=== PATIENT | female | born 1980 | race Caucasian/White ===

== ENCOUNTER → 2017-09-08 | Outpatient (CLI) | payer BC ==
[~2017-09-08] MED LIST: OPTIRAY 320 IV PRN
--- NOTE | 2017-09-08 17:20 | DIAGNOSTIC IMAGING REPORT ---
CT ANGIOGRAPHY OF THE CHEST, PULMONARY EMBOLUS PROTOCOL CLINICAL HISTORY: Chest pain and shortness of breath. COMPARISON STUDY: No previous studies for comparison. TECHNIQUE: Following IV administration of 93 mL of Optiray-320, helical axial images of the chest were obtained utilizing the pulmonary embolus protocol. Maximal intensity projections and sagittal and coronal reformats were viewed on an independent 3D workstation. IV contrast was administered without complication. A dose lowering technique was utilized adhering to the principles of ALARA. CT DOSE: 428.89 mGycm FINDINGS: No pulmonary emboli are identified. There is no evidence for thoracic aortic dissection. The size of the heart is normal. There is no pericardial effusion. No enlarged thoracic lymph nodes are present. Central airways are patent. No pneumothorax or pleural effusion is noted. There is no consolidation to suggest pneumonia. Mild groundglass opacities reflect atelectasis. Bony thorax and upper abdomen are unremarkable. IMPRESSION: 1. No pulmonary emboli identified. 2. No acute intrathoracic findings. Electronically signed by: aMrv Gamino M.D. 09/08/2017 5:19 PM Dictated Date/Time: 09/08/2017 5:14 PM
[2017-09-08 17:40] LABS: ALBUMIN 4.1 gm/dl (3.4-5.0); ALT/SGPT 81 U/L (12-78); AST/SGOT 37 U/L (15-37); BLOOD UREA NITROGEN 15 mg/dl (7-18); CALCIUM 9.4 mg/dl (8.5-10.1); CARBON DIOXIDE 30 mmol/L (21-32); CREATININE 0.84 mg/dl (0.60-1.20); GLUCOSE 91 mg/dl (70-99); SODIUM 138 mmol/L (136-145)
[2017-09-08 17:53] LABS: ALKALINE PHOSPHATASE 70 U/L (45-117); TOTAL PROTEIN 8.1 gm/dl (6.4-8.2)
[2017-09-08 17:54] LABS: BASO % 0.8 %; BASO ABS # 0.06 K/uL (0-0.2); EOS % 1.5 %; EOS ABS # 0.11 K/uL (0-0.5); HEMATOCRIT 37.9 % (37-47); HEMOGLOBIN 12.7 g/dL (12.0-16.0); IG# 0.02 K/uL (0.00-0.02); LYMPH % 34.1 %; LYMPH ABS # 2.56 K/uL (1.2-3.4); MEAN CELL VOLUME 88.3 fL (80-100); MEAN CORPUSCULAR HEMOGLOBIN 29.6 pg (25-34); MEAN CORPUSCULAR HGB CONC 33.5 g/dl (32-36); MEAN PLATELET VOLUME 10.2 fL (7.4-10.4); MONO % 5.3 %; NEUT ABS # 4.36 K/uL (1.4-6.5); PLATELET COUNT 334 K/uL (130-400); RED CELL DISTRIBUTION WIDTH CV 12.2 % (11.5-14.5); RED CELL DISTRIBUTION WIDTH SD 38.8 fL (36.4-46.3); WHITE BLOOD COUNT 7.51 K/uL (4.8-10.8)
== END | disposition home or self-care (01) ==
LOC: C.CTS 16:43
PROVIDERS: ATTEND Family Medicine
DX: R06.02 Shortness of breath (principal); R42 Dizziness and giddiness; D64.9 Anemia, unspecified; M25.50 Pain in unspecified joint; R00.1 Bradycardia, unspecified

== ENCOUNTER 2019-01-08 17:58 | Inpatient (IN) ==
--- NOTE | 2019-01-08 18:39 | History & Physical Report ---
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 fhts categ 1. can ambulate with intermittent monitoring. History of Present Illness Chief Complaint: thinks her ctx are closer and stronger. Primary Care Provider: NO PCP 38yo at 39+wks ega with cc as noted. Patient called with ctx q4min apart for 2hrs. no rom. +fm. No vb. pnc c/b 1. prior preg c/b gest htn 2. ama --having wkly nsts 3. anxiety on meds. 4. GBS pos urine--trt in labor pnl rh neg, ri, gbs pos urine obh: x 1, induction , sab x1 gynh: no stds, nl paps pmh: see below psh: see below Allergies Allergy/AdvReac Type Severity Reaction Status Date / Time No Known Allergies Allergy Verified 01/04/19 10:31 Home Medications Home Medications Medication Instructions Recorded Confirmed Type aspirin [Aspir-81] 81 mg PO DAILY 01/08/19 01/08/19 History buspirone 5 mg PO DAILY 01/08/19 01/08/19 History buspirone 10 mg PO HS 01/08/19 01/08/19 History ferrous sulfate [Iron (ferrous 325 mg PO BID 01/08/19 01/08/19 History sulfate)] folic acid 800 mcg PO DAILY 01/08/19 01/08/19 History Patient History Family History Father Family history of diabetes mellitus Mother Hemangiopericytoma Grandmother (Maternal) Pancreatic cancer Aunt Breast cancer Social History Preferred Language: Spanish Communication Ability: Effective Dairy Clerk Required: No Beliefs That Will Affect Care: None marital status: Current Living Situation: Spouse Current Living Situation Comment: Lives with and daughter Other Information That Helps Us Care for You: No Feels Safe at Home: Yes Smoking Status: Never smoker Do You Dip or Chew Tobacco: No ; Second Hand Exposure: No ; Tobacco Cessation Education Requested by Patient: No Hx Alcohol Use: No Hx Substance Use: No Review of Systems see hpi Physical Exam Constitutional: WD/WN, vitals as above Respiratory: normal respiratory effort, lungs clear to auscultation Cardiovascular: Rate/Rhythm: regular rate and regular rhythm Gastrointestinal (Abdomen): Percussion/Palpation: abdomen soft; abdomen nontender efw 8# Musculoskeletal: nt calves Neurologic: grossly normal Psychiatric: A+Ox3, euthymic affect Genitourinary: Manual OB Exam: + cervical dilation (2-3), + cervical effacement 90% and + station -2 OB Exam Monitor Tracing: + external FHT monitor used (reactive, mod variability), + external uterine monitor used (q5), + category I and + normal FHT variability Results & Data Vital Signs (Past 12 Hours) Vital Signs Temp Pulse Resp BP 01/08/19 18:22 70 139/73 01/08/19 18:02 99.1 F 81 20 132/97
[2019-01-08] MEDS ORDERED: OXYTOCIN 30 UNITS/500 ML BAG IV PRN ×2 (20:29→21:58)
[2019-01-08] MEDS ORDERED: PENICILLIN G POTASSIUM 6 MU in DEXTROSE 5% 250 ML IV STA (20:29)
--- NOTE | 2019-01-08 20:34 | Labor Progress Brief Note ---
Date of Service January 08, 2019 Subjective Reason For Note: Routine Evaluation feeling more intense Assessment & Plan (1) Supervision of elderly multigravida: admit, iv, labs. wants epidural for pain mgmt (2) Carrier of group B Streptococcus: start pcn (3) History of gestational hypertension: will check labs, occas bp elevated Physical Exam Constitutional: WD/WN, vitals as above Genitourinary: Manual OB Exam: + cervical dilation (4-5cm), + cervical effacement 100% and + station -2 OB Exam Monitor Tracing: + external FHT monitor used (135 mod variability ), + external uterine monitor used (q2-5), + category I and + normal FHT variability Results & Data Vital Signs (Past 12 Hours) Vital Signs Temp Pulse Resp BP 01/08/19 19:16 97.9 F 82 20 146/67 H 01/08/19 18:22 70 139/73 01/08/19 18:07 70 139/73 01/08/19 18:02 99.1 F 81 20 132/97
[2019-01-08] MEDS: LACTATED RINGER'S 1,000 ML IV PRN ×2 (20:42→23:36)
[2019-01-08] MEDS ORDERED: NALOXONE HCL 0.4 MG/1 ML VIAL/CARP IV PRN (20:49)
[2019-01-08] MEDS ORDERED: NALBUPHINE HCL INJ 10 MG/ML AMP IV PRN (20:49)
[2019-01-08] MEDS ORDERED: ONDANSETRON INJ 2 MG/ML 2 ML VIAL IV PRN (20:49)
[2019-01-08] MEDS ORDERED: NALOXONE HCL 1 MG in SODIUM CHLORIDE 0.9% 1000ML 1,000 ML IV PRN (20:49)
[2019-01-08] MEDS ORDERED: fentaNYL 2MCG/ML ROPIV 1.25MG/ML 100 ML BAG EPI PRN (20:49)
[2019-01-08] MEDS ORDERED: DiphenhydrAMINE HCL 50 MG/ML VIAL IV PRN (20:49)
[2019-01-08] MEDS ORDERED: ePHEDrine sulfate 50 MG/ML AMP IV PRN (20:49)
--- NOTE | 2019-01-08 20:52 | Anesthesiology Consultation ---
Date of Service January 08, 2019 Assessment & Plan (1) Encounter for pre-operative examination: Chart Review Chart Review: Patient NOT seen in Pre Admission Testing and Acceptable Risk for Labor Epidural Consults Requested none ASA ASA2 Proposed Anesthesia Anesthesia Type: Labor Epidural Risk / Benefits Reviewed With: PT / POA / Parent / Guardian, Accepts Plan and Informed Consent Obtained History Height/Weight Height: 5 ft 6 in Weight: 96.162 kg Allergies Allergy/AdvReac Type Severity Reaction Status Date / Time No Known Allergies Allergy Verified 01/04/19 10:31 Medications Home Medications Medication Instructions Recorded Confirmed Last Taken aspirin [Aspir-81] 81 mg PO DAILY 01/08/19 01/08/19 01/07/19 12:00 buspirone 5 mg PO DAILY 01/08/19 01/08/19 01/07/19 09:00 buspirone 10 mg PO HS 01/08/19 01/08/19 01/07/19 22:00 ferrous sulfate [Iron (ferrous 325 mg PO BID 01/08/19 01/08/19 01/07/19 21:00 sulfate)] folic acid 800 mcg PO DAILY 01/08/19 01/08/19 01/07/19 09:00 Active Medications Generic Name Dose Route Start Last Admin Trade Name Freq PRN Reason Stop Dose Admin Lactated Ringer's 1,000 mls @ 125 mls/hr 01/08/19 20:29 01/08/19 20:42 Lr IV 01/10/19 20:28 999 mls/hr .Q8H PRN Administration L&D Protocol Protocol NPO Date Last Intake of Fluids: 01/08/19 Time Last Intake of Fluids: 20:00 Date Last Intake of Solids: 01/08/19 Time Last Intake of Solids: 09:00 Past Medical History Medical History Asthma seasonal GERD (gastroesophageal reflux disease) Anemia hemolytic anemia diagnosed at age 7 Anxiety GERD (gastroesophageal reflux disease) History of anesthesia reaction had difficulty waking after rhinoplasty sx Hx of gastric ulcer 5 bleeding ulcers 2010 Exercise / Class Metabolic Activity II 4-5 Yardwork/Stairs/Walk up hill Past Family History Family History Father Family history of diabetes mellitus Mother Hemangiopericytoma Grandmother (Maternal) Pancreatic cancer Aunt Breast cancer Past Surgical History Surgical History History of esophagogastroduodenoscopy (EGD) History of rhinoplasty History of tooth extraction wisdom teeth Past Anesthesia History No Hx of Anesthesia Complications and No Family Hx of Anesthesia Complications History of PONV No Hx of PONV and No Hx of Motion Sickness Social History Smoking Status: Never smoker Do You Dip or Chew Tobacco: No Hx Alcohol Use: No Alcohol type: beer and wine alcohol intake frequency: 0-2 drinks per day Hx Substance Use: No substance use type: does not use Physical Exam Vital Signs Last Vital Signs Temp 36.6 C 01/08/19 19:16 Pulse 100 H 01/08/19 21:28 Resp 20 01/08/19 19:16 BP 146/67 H 01/08/19 19:16 Pulse Ox 97 01/08/19 21:28 Constitutional + obese ENMT Mouth: no TMJ abnormality, no TMJ clicking and no dentition abnormality Thyromental Distance: > or= 3.5 Finger Breadths Mallampati Class: II Neck + thick neck Respiratory normal respiratory effort; no respiratory distress Auscultation: lungs clear to auscultation bilaterally Cardiovascular Rate/Rhythm: regular rate and regular rhythm Musculoskeletal Spine: normal cervical ROM and no pain with cervical ROM Neurologic moves all extremities Motor/Sensory: no sensory deficit Psychiatric Orientation: alert and oriented x 3 Testing Laboratory Results 01/08/19 20:55
[2019-01-08] MEDS ORDERED: BUPIVACAINE 0.25% 30 ML VIAL ONE (21:02)
[2019-01-08] MEDS ORDERED: fentaNYL citrate 100 MCG/2 ML VIAL ONE (21:03)
[2019-01-08] MEDS ORDERED: ePHEDrine sulfate 50 MG/ML AMP ONE (21:03)
[2019-01-08] MEDS ORDERED: fentaNYL 2MCG/ML ROPIV 1.25MG/ML 100 ML BAG EPI ONE (21:04)
[2019-01-08 21:20] LABS: Hematocrit (blood only) 33.4 % (37-47); Hemoglobin 11.9 g/dL (12.0-16.0); Mean Corpuscular Volume 88.8 fL (80-100); Mean Platelet Volume 11.7 fL (7.4-10.4); Platelet Count 221 K/uL (130-400); RDW Coefficient of Variation 13.5 % (11.5-14.5); RDW Standard Deviation 43.7 fL (36.4-46.3); Red Blood Count 3.76 M/uL (4.2-5.4); White Blood Count 19.43 K/uL (4.8-10.8)
[2019-01-08 21:21] LABS: Mean Corpuscular Hgb Conc 35.6 g/dL (32-36)
[2019-01-08 21:37] LABS: Albumin Level 3.1 gm/dl (3.4-5.0); BUN Creatinine Ratio 12.3 (10-20); Calcium 9.7 mg/dl (8.5-10.1); Creatinine Clr Calc Pharmacy 150.1 ml/min; Est GFR (Non-African American) 116.4; Potassium 3.8 mmol/L (3.5-5.1)
[2019-01-08 21:40] LABS: Albumin Globulin Ratio 0.8 (0.9-2); Bilirubin,Total 0.5 mg/dl (0.2-1); Globulin 3.9 gm/dl (2.5-4.0)
[2019-01-09] MEDS: PENICILLIN G POTASSIUM 3 MU in DEXTROSE 5% 100 ML IV PRN ×2 (00:49→04:38)
--- NOTE | 2019-01-09 04:22 | Labor Progress Brief Note ---
Date of Service January 09, 2019 Subjective comfortable Assessment & Plan (1) Supervision of elderly multigravida: (2) Carrier of group B Streptococcus: c/w pcn and pit. good cx change. will see how arom helps pattern. fhts categ 1. Physical Exam Constitutional: WD/WN, vitals as above Genitourinary: Manual OB Exam: + cervical dilation 7 cm, + cervical effacement (80), + station 0 and + amniotic fluid (AROM) clear OB Exam Monitor Tracing: + external FHT monitor used (130 mod variability), + external uterine monitor used (q2, pit at 13), + category I and + normal FHT variability Results & Data Vital Signs (Past 12 Hours) Vital Signs Temp Pulse Resp BP Pulse Ox 01/09/19 04:13 74 95 01/09/19 04:12 71 124/66 01/09/19 04:08 75 95 01/09/19 04:03 75 97 01/09/19 03:58 76 97 01/09/19 03:56 76 124/60 01/09/19 03:53 73 97 01/09/19 03:48 84 98 01/09/19 03:44 83 92 01/09/19 03:43 68 95 01/09/19 03:42 70 130/62 01/09/19 03:38 70 96 01/09/19 03:33 72 97 01/09/19 03:29 78 132/68 01/09/19 03:28 80 97 01/09/19 03:23 99.0 F 85 16 97 01/09/19 03:19 79 93 01/09/19 03:18 76 96 01/09/19 03:13 78 97 01/09/19 03:12 72 153/75 H 01/09/19 03:08 81 96 01/09/19 03:03 77 95 01/09/19 02:58 79 95 01/09/19 02:57 78 134/72 01/09/19 02:53 86 96 01/09/19 02:48 73 96 01/09/19 02:43 80 98 01/09/19 02:42 76 136/75 01/09/19 02:38 78 97 01/09/19 02:33 78 97 01/09/19 02:28 76 96 01/09/19 02:27 76 147/74 H 01/09/19 02:23 83 98 01/09/19 02:18 99.1 F 80 18 98 01/09/19 02:13 83 99 01/09/19 02:11 74 119/62 01/09/19 02:08 70 97 01/09/19 02:06 83 94 01/09/19 02:03 72 96 01/09/19 01:58 80 99 01/09/19 01:56 71 132/70 01/09/19 01:53 85 96 01/09/19 01:48 79 96 01/09/19 01:43 78 97 01/09/19 01:41 82 131/69 01/09/19 01:38 76 97 01/09/19 01:33 79 97 01/09/19 01:28 79 141/74 H 97 01/09/19 01:23 105 H 96 01/09/19 01:22 78 94 01/09/19 01:18 106 H 96 01/09/19 01:15 103 H 94 01/09/19 01:13 96 H 95 01/09/19 01:11 85 118/65 01/09/19 01:08 83 95 01/09/19 01:03 84 96 01/09/19 00:59 16 01/09/19 00:58 89 97 01/09/19 00:56 96 H 129/66 01/09/19 00:53 82 97 01/09/19 00:52 99.0 F 01/09/19 00:48 92 H 97 01/09/19 00:43 84 96 01/09/19 00:41 81 130/69 01/09/19 00:38 80 96 01/09/19 00:33 83 96 01/09/19 00:29 16 01/09/19 00:28 100 H 124/81 97 01/09/19 00:23 110 H 97 01/09/19 00:18 86 95 01/09/19 00:15 86 93 01/09/19 00:13 93 H 95 01/09/19 00:12 84 140/75 01/09/19 00:08 92 H 95 01/09/19 00:07 93 H 93 01/09/19 00:03 86 96 01/08/19 23:58 90 95 01/08/19 23:57 85 94 01/08/19 23:56 83 134/72 01/08/19 23:53 88 97 01/08/19 23:48 92 H 96 01/08/19 23:43 83 133/78 96 01/08/19 23:38 94 H 97 01/08/19 23:33 93 H 95 01/08/19 23:28 89 96 01/08/19 23:27 85 94 01/08/19 23:26 88 16 129/77 01/08/19 23:23 97 H 97 01/08/19 23:18 85 96 01/08/19 23:15 99.7 F H 16 01/08/19 23:13 86 96 01/08/19 23:11 87 133/75 01/08/19 23:08 89 96 01/08/19 23:03 85 96 01/08/19 22:58 84 139/77 97 01/08/19 22:53 85 97 01/08/19 22:48 83 98 01/08/19 22:43 89 132/77 97 01/08/19 22:38 86 97 01/08/19 22:33 90 97 01/08/19 22:28 88 96 01/08/19 22:27 83 134/77 01/08/19 22:23 93 H 96 01/08/19 22:18 88 96 01/08/19 22:13 93 H 96 01/08/19 22:12 85 142/75 H 01/08/19 22:08 93 H 97 01/08/19 22:03 92 H 97 01/08/19 21:58 88 97 01/08/19 21:56 95 H 139/77 01/08/19 21:55 94 H 137/74 01/08/19 21:53 94 H 97 01/08/19 21:52 94 H 146/76 H 01/08/19 21:50 89 141/80 H 01/08/19 21:49 88 139/75 01/08/19 21:48 85 97 01/08/19 21:46 94 H 143/78 H 01/08/19 21:44 99 H 137/75 01/08/19 21:43 104 H 97 01/08/19 21:42 100 H 141/76 H 01/08/19 21:40 96 H 143/77 H 01/08/19 21:38 94 H 139/76 96 01/08/19 21:36 93 H 134/76 01/08/19 21:35 94 H 137/79 01/08/19 21:33 90 138/79 97 01/08/19 21:31 90 94 01/08/19 21:28 100 H 97 01/08/19 21:24 115 H 92 01/08/19 21:23 108 H 98 01/08/19 19:16 97.9 F 82 20 146/67 H 01/08/19 18:22 70 139/73 01/08/19 18:07 70 139/73 01/08/19 18:02 99.1 F 81 20 132/97
[2019-01-09] MEDS: LACTATED RINGER'S 1,000 ML IV PRN (07:15)
[2019-01-09] MEDS ORDERED: HYDROCORTISONE ACETATE 25 MG SUPP PR PRN (08:04)
[2019-01-09] MEDS ORDERED: DIPHTHERIA/TETANUS/PERTUSSIS 0.5 ML SYR/VIAL IM ONE (08:04)
[2019-01-09] MEDS ORDERED: SUPERCREAM 0.870% 15 GM JAR EXT PRN (08:04)
[2019-01-09] MEDS ORDERED: ACETAMINOPHEN 325 MG TAB PO PRN (08:04)
[2019-01-09] MEDS ORDERED: OXYCODONE/ACETAMINOPHEN 5mg/325mg TAB PO PRN (08:04)
[2019-01-09] MEDS ORDERED: OXYTOCIN 30 UNITS/500 ML BAG IV PRN (08:04)
[2019-01-09] MEDS ORDERED: BENZOCAINE 20% AER SPR 82.5 GM CAN EXT PRN (08:04)
--- NOTE | 2019-01-09 08:06 | Delivery Summary ---
Vaginal Delivery Summary Date of Service January 09, 2019 The patient dilated to complete and pushed to deliver a viable female Apgars 8 and 8 via over 2nd degree perineal laceration. Mouth and nose bulb suctioned at perineum. Shoulders and body delivered with ease. Infant was vigorous and crying at . Cord clamped and to maternal abdomen where the cord was then doubly clamped and cut. Cord blood specimen collection took place for pts private collection. Placenta delivered spontaneously and intact, three-vessel cord. Hemostasis achieved with dilute pitocin and uterine massage and drainage of the bladder for approximately 200 cc under sterile conditions. Laceration repaired in usual fashion using 3-0 vicryl. Cervix and sulci intact. EBL 300 cc. Mother and baby stable recovery.
[2019-01-09] MEDS ORDERED: OXYTOCIN 20 UNITS in LACTATED RINGER'S 1,000 ML IV SCH (08:15)
[2019-01-09] MEDS: IBUPROFEN 600 MG TAB PO PRN ×4 (10:04→23:16)
[2019-01-09] MEDS ORDERED: DOCUSATE SODIUM 100 MG CAP ONE (11:05)
[2019-01-09] MEDS: DOCUSATE SODIUM 100 MG CAP PO SCH (20:20)
--- NOTE | 2019-01-10 06:27 | Obstetrical Progress Note ---
Date of Service <Stefanie Moore MD - Last Filed: 01/10/19 07:59> January 10, 2019 Assessment & Plan <Stefanie Moore MD - Last Filed: 01/10/19 07:59> (1) Status post vaginal delivery: JUAN is a 38 yo with a PMHx of gestational HTN on PPD 1 for IOL for post dates (41 weeks) with well controlled BP during this delivery and recovery period. - GBS+ s/p treatment, Rh -, Rubella immune -Vitals reviewed and WNL (Tmax 37.6__) -patient is doing clinically well patient ready for discharge - will place in 'nesting status' until peds clears baby for d/c (given GBS treatment) - After discharge will have [address] Evans. Subjective <Stefanie Moore MD - Last Filed: 01/10/19 07:59> Ambulation: ambulating normally Voiding: no voiding problems Passing Gas:: Yes Diet Tolerance:: regular diet Lochia:: Moderate (feels gush of blood when going from sitting to standing) Current Pain Level(1-10): 2 examined at bedside Physical Exam <Stefanie Moore MD - Last Filed: 01/10/19 07:59> General Appearance: Alert, oriented. No acute distress. Cardiac: Regular rate and rhythm, S1 and S2 appreciated. No murmurs/rubs/gallops. Respiratory: Clear to auscultation anterior and posteriorly, no wheezes/rales/rhonchi/crackles. No accessory muscle use. Symmetrical chest rise. Abdomen: Soft, nontender, nondistended. Normoactive bowel sounds throughout. Uterus: Uterine fundus firm, palpable 1 cm above umbilicus. Lower Extremities: No lower extremity edema. No calf pain on compression. Results & Data <Stefanie Moore MD - Last Filed: 01/10/19 07:59> Vital Signs (Past 12 Hours) Vital Signs Temp Pulse Resp BP Pulse Ox 01/10/19 03:00 36.5 C 72 18 127/85 01/09/19 23:15 36.7 C 79 18 137/83 01/09/19 18:54 37.2 C 73 18 117/75 98 <Lilo Barrera DO - Last Filed: 01/10/19 08:11> Co-Signing Physician Notes Resident Physician Supervision Note: I was present with Dr. Moore during the history and exam. I discussed the case with the resident and agree with the findings and plan as documented in the note. Any exceptions or clarifications are listed here: PPD#1 doing well. Would like to go home. DC instructions reviewed. RTO 6wPP Documented By: Lilo Barrera DO Resident Activity Tracking <Stefanie Moore MD - Last Filed: 01/10/19 07:59> Resident Involvement: Resident Care Provided Care Provided: Adult Hospital Medicine
[2019-01-10] MEDS: IBUPROFEN 600 MG TAB PO PRN (08:43)
[2019-01-10] MEDS: DOCUSATE SODIUM 100 MG CAP PO SCH (08:44)
== END 2019-01-10 14:20 | disposition home or self-care (01) | DRG 807 ==
LOC: OPB 17:58 → 4S1 17:59 → 4S2 01-09 11:35